=== PATIENT | female | born 1985 | race Caucasian/White ===

== ENCOUNTER 2020-07-20 17:28 | Emergency (ER) | payer OTHER, SELFPAY ==
[2020-07-20 17:29] VITALS: BP 154/92; PULSE 93; RESP 16; TEMP 36.1; O2SAT 98; BMI 34.3
--- NOTE | 2020-07-20 17:49 | CT_ITS ---
STUDY: CT BRAIN WITHOUT CONTRAST REASON FOR EXAM: Female, 35 years old. TOURE, N/V/LIP NUMB, TINGLING HANDS,SUDDEN ONSET RADIATION DOSAGE (If Supplied By Facility): CTDIvol = ( 44.99 ) mGy, DLP = ( 779.24 ) mGycm TECHNIQUE: Transaxial CT imaging of the brain was performed without administration of intravenous contrast material. Individualized dose optimization techniques were used for this CT. COMPARISON: No relevant priors. FINDINGS: Normal soft tissue structures. Normal calvarium. Normal size ventricles and extra-axial spaces for the patient''s age. Normal white matter tracts of the cerebral hemispheres. Normal basal ganglia and thalami. Normal brainstem. Normal cerebellum. There is no intracranial hemorrhage. There are no findings of an acute ischemic infarction. Normal visualized paranasal sinuses. CT/Brain/Head without Contrast IMPRESSION: Normal unenhanced CT scan of the brain. Electronically Signed: Anu Null MD at 18:26 EDT , Service support ,
--- NOTE | 2020-07-20 17:55 | ED.VISSUMM ---
- ER Visit Summary Date of Service: 07/20/20 Chief Complaint: Headache, nausea, dizziness History of Present Illness: The patient is a 35 F who presents with headache, nausea, dizziness that began today. Patient states she was outside playing with her kids most of the day. Patient states her headache is over the top of her head. Patient describes a sharp and throbbing. Patient states it is worse when she vomited. Patient admits to some changes in her vision that have resolved. Patient denies any fevers or chills. Patient denies any shortness of breath or cough. Patient denies any dysuria or hematuria. Patient denies any chest pain. Physical Examination: Vital signs are stable. Patient is afebrile. Patient is in no acute distress. Oral mucosa is pink and moist. Neck is supple. Trachea is midline. There is no JVD noted. Heart was regular rate and rhythm. Lungs are clear and equal bilaterally. Abdomen is soft. Bowel sounds are normal. There is no tenderness. There is no rebound or guarding noted. Skin is warm dry. Cranial nerves II through XII are intact. There are no focal motor or sensory deficits noted. Extremities are intact. There is no calf tenderness or edema. Test Results: CBC shows a mild leukocytosis of 12.4. Comprehensive metabolic profile showed a slightly elevated creatinine of 1.16. Urinalysis shows ketones of 150. There is no evidence of urinary tract infection. CT scan of the brain was obtained. There is no acute intracranial abnormality. This was interpreted by the radiologist and reviewed by myself. Emergency Department Course and Treatment: Patient was given IV fluids and Zofran initially. Patient was given Reglan and Benadryl for her headache. Patient had minimal improvement with this. Patient was given injection of Toradol and Imitrex. Patient states her headache has improved. Patient feels better and wants to go home. Patient was instructed to follow-up with her primary care physician in 5 to 7 days. Patient understood and was agreeable with the plan. All questions were answered. Disposition: Discharge home Impression: Headache This note was generated with [employer] dictation software. It may contain incorrect words, spelling, and punctuation that were not noted in review of the chart prior to signing ED Disposition - Plan for ED Patient: Disposition: Home or Assisted Living Diagnosis: Headache Instructions: ED Dehydration Adult, ED Acute Pain [facility] Referrals: NOT,DEFINED [NON-STAFF] - 5-7 Days
[2020-07-20] MEDS: 0.9% Normal Saline 1,000 ML 1000 ML IV (18:00)
[2020-07-20] MEDS: Ondansetron 4 MG/2 ML Vial IV (18:00)
[2020-07-20 18:14] LABS: Absolute Lymphocyte Count 2.14 X10^3/uL (0.83-4.51); Absolute Neutrophil Count 9.2 X10^3/uL (2.0-7.7); Basophil# 0.05 X10^3/uL; Basophil% 0.4 % (0-1); Eosinophil# 0.23 X10^3/uL; Eosinophils% 1.9 % (0-5); Hematocrit 44.7 % (37-47); Hemoglobin 14.5 g/dL (12.0-15.0); Lymphocyte # 2.14 X10^3/ul (4.0); Lymphocyte % 17.2 % (19-41); Mean Corp Hgb Conc 32.4 g/dL (32-36); Mean Corpuscular Volume 86.5 fL (81-99); Mean Platelet Vol. 8.4 fl (6.2-12.0); Monocyte% 6.4 % (0-10); NRBC Flagged by Analyzer 0 % (0-5); Neutrophil # 9.15 X10^3/uL (2.7-7.7); Neutrophil % 73.7 % (47-70); Platelet Count 333 K/mm3 (150-450); RBC Distribution Width CV 12.8 % (11.6-14.6); RBC Distribution Width SD 40.3 fl (35.1-43.9); Red Blood Count 5.17 M/mm3 (4.2-5.4); White Blood Count 12.4 K/mm3 (4.4-11.0)
[2020-07-20] MEDS: DiphenhydrAMINE 50 MG/ML Syringe 25 MG IV (18:39)
[2020-07-20] MEDS: Metoclopramide 10 MG/2 ML Vial IV (18:39)
[2020-07-20 18:48] LABS: ALB/GLOB Ratio 1.1 RATIO (0.9-2.4); AST(SGOT) 19 U/L (15-37); Alanine Aminotransfer ALT/SGPT 23 U/L (13-56); Alkaline Phosphatase 83 U/L (45-117); Anion Gap 7 (5-15); BUN 12 mg/dL (7-18); BUN/Creat Ratio 10.3 RATIO (10-20); Calcium,Total 8.9 mg/dL (8.5-10.1); Chloride 105 mmol/L (98-107); Creatinine, Serum 1.16 mg/dL (0.55-1.02); EST Glomerular Filtration Rate 56 mL/min (>60); Est Glom Filt Rate - Afr Amer 68 mL/min (>60); Estimated Creatinine Clearance 58.45 ml/min; Globulin 3.7 g/dL (2.2-4.2); Glucose 101 mg/dL (74-106); Potassium 3.3 mmol/L (3.5-5.1); Protein, Total 7.7 g/dL (6.4-8.2); Sodium Level 139 mmol/L (136-145)
[2020-07-20 18:51] LABS: Bacteria 0 SEEN /hpf (None Seen); Red Blood Cells-Urine 0 SEEN /hpf (0-5)
[2020-07-20 18:55] LABS: Color, Urine Yellow (Yellow); Glucose, Dipstick Normal (Normal); Leukocyte Esterase-Dipstick 25 /ul (Negative); Nitrite-Dipstick Negative (Negative); Occult Blood-Urine Negative /ul (Negative); Protein-Dipstick 30 mg/dl (Negative); Urine Bilirubin Dipstick Negative (Negative); Urine Clarity Clear (Clear); Urine Urobilinogen Normal (Normal)
[2020-07-20 18:59] LABS: Ketone-Dipstick 150 mg/dl (Negative)
[2020-07-20 19:01] LABS: Mucous, Urine 1+ /hpf (<or=2+); Squamous Epithelial Cells - UA 5-10 SEEN /hpf (5-10); White Blood Cells 0-5 SEEN /hpf (0-5)
[2020-07-20] MEDS: Ketorolac 30 MG/ML Syringe IV (20:15)
[2020-07-20] MEDS: SUMAtriptan 6 MG/0.5 ML Vial SC (20:17)
[2020-07-20 20:22] VITALS: BP 127/80; PULSE 85; RESP 16; O2SAT 96
[2020-07-20 21:18] VITALS: BP 125/66; PULSE 79; RESP 16; O2SAT 97
== END 2020-07-20 21:38 | disposition home or self-care (01) ==
PROVIDERS: Emergency Provider Emergency Medicine; PCP Pediatrics
DX: R51.9 Headache, unspecified (principal); R42 Dizziness and giddiness; R11.2 Nausea with vomiting, unspecified; E66.9 Obesity, unspecified
CPT/HCPCS: 70450; 80053; 81001; 85025; 96361; 96372; 96374; 96375; 99284; J7030; J2405; J3030